=== PATIENT | female | born 1975 | race Caucasian/White ===

== ENCOUNTER 2020-11-14 11:17 | Emergency (ER) | payer MEDICAID ==
[~2020-11-14] VITALS: Ht 154.9 cm; Wt 68.0 kg
[2020-11-14] MEDS ORDERED: DEXA0.5E3 MT (12:18)
[2020-11-14 12:37] VITALS: BP 124/76
== END 2020-11-14 12:38 | disposition home or self-care (01) ==
LOC: ER 11:17
DX: K12.0 Recurrent oral aphthae (principal)
CPT/HCPCS: 99283